=== PATIENT | male | born 1990 | race Caucasian/White ===

== ENCOUNTER 2023-06-24 14:02 | Emergency (ER) | payer OTHER ==
[2023-06-24] MEDS ORDERED: Ibuprofen 600 MG Tab PO ONE (15:26)
[2023-06-24] MEDS ORDERED: Acetaminophen/oxyCODONE 325-5 MG Tab PO ONE (15:26)
== END 2023-06-24 16:00 | disposition home or self-care (01) ==
LOC: MW.ED 14:02
DX: S82.54XA Nondisplaced fracture of medial malleolus of right tibia, initial encounter for closed fracture (principal); Z86.16 Personal history of COVID-19; Z79.899 Other long term (current) drug therapy; X50.1XXA Overexertion from prolonged static or awkward postures, initial encounter
CPT/HCPCS: 29515; 73610; 73630; 99283; A9270

== ENCOUNTER 2023-07-02 09:36 | Day surgery (SDC) | payer OTHER ==
[~2023-07-02 09:36] MED LIST: Albuterol 0.083% 2.5 MG/3 ML Neb Soln NEB PRN; HYDROmorphone 1 MG/ML Syringe IVPUSH PRN; Lactated Ringers 1,000 ML IV SCH; Metoclopramide 10 MG/2 ML SDV IVPUSH PRN; Morphine 2 MG/ML SYRINGE IVPUSH PRN; Naloxone 0.4 MG/ML SDV IVPUSH PRN; Ondansetron 4 MG/2 ML SDV IVPUSH PRN; ceFAZolin 2 GM in Sodium Chloride 0.9% 50 ML IV ONE; droPERidol 5 MG/2 ML SDV IVPUSH PRN; fentaNYL 50 MCG/ML SDV IVPUSH PRN
[2023-07-02] MEDS ORDERED: Ropivacaine 0.5% 5 MG/ML 30 ML SDV ONE (10:31)
[2023-07-02] MEDS ORDERED: Lidocaine 2% 5 ML SDV ONE (10:54)
[2023-07-02] MEDS ORDERED: fentaNYL 250 MCG/5 ML SDV ONE ×2 (11:57→12:38)
[2023-07-02] MEDS ORDERED: Dexamethasone 4 MG/ML 5 ML MDV ONE (11:57)
[2023-07-02] MEDS ORDERED: Ketorolac 30 MG/ML SDV ONE (11:57)
[2023-07-02] MEDS ORDERED: Propofol 200 MG/20 ML SDV ONE (11:57)
[2023-07-02] MEDS ORDERED: Ondansetron 4 MG/2 ML SDV ONE (11:57)
[2023-07-02] MEDS ORDERED: Ketamine 500 mg/10 ML MDV ONE (12:38)
[2023-07-02] MEDS ORDERED: ceFAZolin 2 GM Vial ONE ×2 (12:39→13:13)
[2023-07-02] MEDS ORDERED: HYDROmorphone 2 MG/ML Syringe ONE (13:22)
[2023-07-02] MEDS ORDERED: oxyCODONE 5 MG Tab PO ONE (14:30)
== END 2023-07-02 15:00 | disposition home or self-care (01) ==
LOC: MW.SDS 09:36
PROVIDERS: ATTEND Orthopaedic Surgery
DX: S82.51XA Displaced fracture of medial malleolus of right tibia, initial encounter for closed fracture (principal); I10 Essential (primary) hypertension; E78.00 Pure hypercholesterolemia, unspecified; Z87.891 Personal history of nicotine dependence; Z79.899 Other long term (current) drug therapy; V59.49XA Driver of pick-up truck or van injured in collision with other motor vehicles in traffic accident, initial encounter
CPT/HCPCS: 27766; 64447; 76000; A9270; J0131; J0690; J1100; J1170; J1885; J2405; J2704; J2795; J3010; J3490; J7120; C1713